=== PATIENT | female | born 1940 | race Two or more races ===

== ENCOUNTER 2017-09-20 08:00 | Inpatient (IN) | payer OTHER ==
[~2017-09-20] VITALS: Ht 149.9 cm; Wt 72.6 kg
[~2017-09-20 08:00] MED LIST: ASA325 M1 PO; ATACAND32 MG PO; CARDURA1 MG PO; CELEBREX100 MG PO; CRESTOR5 MG PO; ELAVIL; LODINE400 MG PO; MOTRIN800 MG PO; NEURONTIN300 MG PO; NOVOLIN N100 UNITS/; ORPH100T PO; SINGULAIR10 MG PO; SYNTHROID100 MCG; VERAPAMIL HCL180 MG PO; ZESTRIL20 MG; [UNRECOGNIZED DRUG - OTHER] PO
[2017-09-20] MEDS ORDERED: COZAAR100 MG PO (12:47)
[2017-09-20] MEDS ORDERED: ZANTAC150 MG PO (12:48)
[2017-09-20] MEDS ORDERED: AMLODIPINE BESYL5 MG PO (12:48)
[2017-09-20] MEDS ORDERED: ALBUTEROL0.63 MG/3 IH (12:49)
[2017-09-20] MEDS ORDERED: DOXAZOSIN MESYLA2 MG PO (12:49)
[2017-09-20] MEDS ORDERED: CALTRATE 600+D1 EAC1 PO (12:50)
[2017-09-22] MEDS ORDERED: ACETAMINOPHEN-1 EAC2 PO (15:18)
[2017-09-22] MEDS ORDERED: COLACE100 MG PO (15:18)
[2017-09-22] MEDS ORDERED: CIPROFLOXACIN750 MG PO (15:18)
[2017-09-22] MEDS ORDERED: CLONAZEPAM1 MG PO (15:18)
== END 2017-09-22 16:47 | disposition home or self-care (01) | DRG 454 ==
LOC: SURH 09-21 04:50 → O/R 09-21 04:50 → SURH 09-21 08:00
PROVIDERS: Orthopaedic Surgery Orthopaedic Surgery of the Spine
PROC: 0SG0071 Fusion of Lumbar Vertebral Joint with Autologous Tissue Substitute, Posterior Approach, Posterior Column, Open Approach (ICD-10-PCS; 2017-09-21)
PROC: 0ST20ZZ Resection of Lumbar Vertebral Disc, Open Approach (ICD-10-PCS; 2017-09-21)
PROC: 0SG00AJ Fusion of Lumbar Vertebral Joint with Interbody Fusion Device, Posterior Approach, Anterior Column, Open Approach (ICD-10-PCS; 2017-09-21)
PROC: 07DS3ZZ Extraction of Vertebral Bone Marrow, Percutaneous Approach (ICD-10-PCS; 2017-09-21)
PROC: 0SG00A0 Fusion of Lumbar Vertebral Joint with Interbody Fusion Device, Anterior Approach, Anterior Column, Open Approach (ICD-10-PCS; principal; 2017-09-21 13:00)
DX: M48.061 Spinal stenosis, lumbar region without neurogenic claudication (principal); M51.06 Intervertebral disc disorders with myelopathy, lumbar region; M43.16 Spondylolisthesis, lumbar region; E03.8 Other specified hypothyroidism; E11.9 Type 2 diabetes mellitus without complications; I10 Essential (primary) hypertension

== ENCOUNTER 2017-10-03 12:24 | Emergency (ER) | payer OTHER ==
[~2017-10-03] VITALS: Ht 154.9 cm; Wt 64.9 kg
[~2017-10-03 12:24] MED LIST changes: +ACETAMINOPHEN-1 EAC2 PO; +ALBUTEROL0.63 MG/3 IH; +AMLODIPINE BESYL5 MG PO; +CALTRATE 600+D1 EAC1 PO; +CIPROFLOXACIN750 MG PO; +CLONAZEPAM1 MG PO; +COLACE100 MG PO; +COZAAR100 MG PO; +DOXAZOSIN MESYLA2 MG PO; +ZANTAC150 MG PO
== END 2017-10-03 19:14 | disposition home or self-care (01) ==
LOC: ER 12:24
DX: K59.00 Constipation, unspecified (principal)

== ENCOUNTER → 2017-10-10 | Outpatient (CLI) | payer OTHER | END | disposition home or self-care (01) | LOC: WOUND MED 08:17 | DX: E10.622 Type 1 diabetes mellitus with other skin ulcer (principal); L98.422 Non-pressure chronic ulcer of back with fat layer exposed | CPT/HCPCS: 11042; A4554; A4930; A6216; A6220; G0463 ==

== ENCOUNTER → 2017-10-17 | Outpatient (CLI) | payer OTHER | END | disposition home or self-care (01) | LOC: WOUND MED 07:42 | DX: E10.622 Type 1 diabetes mellitus with other skin ulcer (principal); L98.422 Non-pressure chronic ulcer of back with fat layer exposed | CPT/HCPCS: 11042; A4554; A4930; A6216; A6220 ==

== ENCOUNTER → 2017-10-23 | Emergency (ER) | payer OTHER ==
[~2017-10-23] VITALS: Ht 121.9 cm; Wt 74.4 kg
== END | disposition home or self-care (01) ==
LOC: ER 07:02
DX: T81.31XS Disruption of external operation (surgical) wound, not elsewhere classified, sequela (principal); Y83.8 Other surgical procedures as the cause of abnormal reaction of the patient, or of later complication, without mention of misadventure at the time of the procedure

== ENCOUNTER → 2017-10-24 | Outpatient (CLI) | payer OTHER | END | disposition home or self-care (01) | LOC: WOUND MED 08:12 | DX: E10.622 Type 1 diabetes mellitus with other skin ulcer (principal); L98.422 Non-pressure chronic ulcer of back with fat layer exposed | CPT/HCPCS: 11042; A4554; A4930; A6216; A6219 ==

== ENCOUNTER → 2017-10-31 | Outpatient (CLI) | payer OTHER | END | disposition home or self-care (01) | LOC: WOUND MED 07:42 | DX: E10.622 Type 1 diabetes mellitus with other skin ulcer (principal); L98.422 Non-pressure chronic ulcer of back with fat layer exposed | CPT/HCPCS: 11042; A4554; A4930; A6216; A6219 ==

== ENCOUNTER → 2017-11-07 | Outpatient (CLI) | payer OTHER ==
[~2017-11-07] MED LIST changes: +AMLODIPINE BESYL5 MG
== END | disposition home or self-care (01) ==
LOC: WOUND MED 08:55 → EDSTATUS 13:30
DX: E10.622 Type 1 diabetes mellitus with other skin ulcer (principal); L98.422 Non-pressure chronic ulcer of back with fat layer exposed
CPT/HCPCS: 11042; A4554; A4930; A6196; A6216; A6219

== ENCOUNTER → 2017-11-14 | Outpatient (CLI) | payer OTHER | END | disposition home or self-care (01) | LOC: WOUND MED 08:32 | DX: E10.622 Type 1 diabetes mellitus with other skin ulcer (principal); L98.422 Non-pressure chronic ulcer of back with fat layer exposed | CPT/HCPCS: 11042; A4554; A4930; A6216 ==

== ENCOUNTER → 2017-11-21 | Outpatient (CLI) | payer OTHER | END | disposition home or self-care (01) | LOC: WOUND MED 07:26 | DX: E10.622 Type 1 diabetes mellitus with other skin ulcer (principal); L98.422 Non-pressure chronic ulcer of back with fat layer exposed | CPT/HCPCS: 11042; A4554; A4930; A6212; A6216; A6219 ==

== ENCOUNTER 2017-11-24 09:51 | Outpatient (CLI) | payer OTHER | END 2017-11-24 15:00 | disposition home or self-care (01) | LOC: TOM 09:51 | DX: R55 Syncope and collapse (principal) ==

== ENCOUNTER → 2017-11-28 | Outpatient (CLI) | payer OTHER | END | disposition home or self-care (01) | LOC: WOUND MED 07:21 | DX: E10.622 Type 1 diabetes mellitus with other skin ulcer (principal); L98.422 Non-pressure chronic ulcer of back with fat layer exposed | CPT/HCPCS: 11042; A4554; A4930; A6212; A6216; A6219 ==

== ENCOUNTER → 2017-12-05 | Outpatient (CLI) | payer OTHER | END | disposition home or self-care (01) | LOC: WOUND MED 07:37 | DX: E10.622 Type 1 diabetes mellitus with other skin ulcer (principal); L98.422 Non-pressure chronic ulcer of back with fat layer exposed | CPT/HCPCS: G0463; A4554; A4930; A6216 ==

== ENCOUNTER 2018-02-09 15:11 | Outpatient (CLI) | payer OTHER | END 2018-02-09 16:06 | disposition home or self-care (01) | LOC: RAD 501 15:11 | DX: M25.571 Pain in right ankle and joints of right foot (principal); M25.572 Pain in left ankle and joints of left foot ==

== ENCOUNTER 2018-03-02 07:16 | Outpatient (CLI) | payer OTHER | END 2018-03-02 07:20 | disposition home or self-care (01) | LOC: RX STUDY 07:16 | DX: R10.84 Generalized abdominal pain (principal) ==

== ENCOUNTER → 2018-04-05 | Outpatient (CLI) | payer OTHER | END | disposition home or self-care (01) | LOC: NUCLEAR 10:00 | DX: M85.89 Other specified disorders of bone density and structure, multiple sites (principal); M81.0 Age-related osteoporosis without current pathological fracture ==

== ENCOUNTER 2018-06-07 15:17 | Outpatient (CLI) | payer OTHER | END 2018-06-07 15:25 | disposition home or self-care (01) | LOC: RAD 501 15:17 | DX: Z76.89 Persons encountering health services in other specified circumstances (principal) ==

== ENCOUNTER 2018-07-20 07:13 | Outpatient (CLI) | payer OTHER | END 2018-07-20 07:23 | disposition home or self-care (01) | LOC: LAB 07:13 | DX: I49.8 Other specified cardiac arrhythmias (principal); D64.89 Other specified anemias; E88.89 Other specified metabolic disorders; D68.8 Other specified coagulation defects; N39.0 Urinary tract infection, site not specified; A49.02 Methicillin resistant Staphylococcus aureus infection, unspecified site; E83.42 Hypomagnesemia; E11.9 Type 2 diabetes mellitus without complications; R82.79 Other abnormal findings on microbiological examination of urine ==

== ENCOUNTER 2018-07-31 04:57 | Day surgery (SDC) | payer OTHER | END 2018-07-31 13:35 | disposition home or self-care (01) | LOC: CIR.AMB 04:57 | DX: S93.05XA Dislocation of left ankle joint, initial encounter (principal); M76.72 Peroneal tendinitis, left leg; M66.362 Spontaneous rupture of flexor tendons, left lower leg ==

== ENCOUNTER 2019-02-22 08:42 | Outpatient (CLI) | payer OTHER | END 2019-02-22 08:59 | disposition home or self-care (01) | LOC: RAD 501 08:42 | DX: M25.572 Pain in left ankle and joints of left foot (principal) ==

== ENCOUNTER 2019-02-26 09:36 | Outpatient (CLI) | payer OTHER | END 2019-02-26 09:57 | disposition home or self-care (01) | LOC: RAD 501 09:36 | DX: M25.561 Pain in right knee (principal) ==

== ENCOUNTER 2020-06-04 12:51 | Outpatient (CLI) | payer OTHER | END 2020-06-04 13:24 | disposition home or self-care (01) | LOC: NUCLEAR 12:51 | PROVIDERS: ATTEND Orthopaedic Surgery | DX: M81.0 Age-related osteoporosis without current pathological fracture (principal) ==

== ENCOUNTER → 2020-07-23 06:15 | Outpatient (CLI) | payer OTHER | END | disposition home or self-care (01) | LOC: LAB 06:15 | PROVIDERS: ATTEND Orthopaedic Surgery | DX: E56.1 Deficiency of vitamin K (principal); M85.88 Other specified disorders of bone density and structure, other site; E55.9 Vitamin D deficiency, unspecified; E88.89 Other specified metabolic disorders; M79.671 Pain in right foot ==

== ENCOUNTER 2020-07-30 08:01 | Outpatient (CLI) | payer OTHER | END 2020-07-30 16:20 | disposition home or self-care (01) | LOC: RAD 08:01 | PROVIDERS: ATTEND Orthopaedic Surgery | DX: M19.071 Primary osteoarthritis, right ankle and foot (principal); M20.21 Hallux rigidus, right foot; M79.671 Pain in right foot ==

== ENCOUNTER 2022-02-04 17:54 | Emergency (ER) | payer OTHER ==
[~2022-02-04] VITALS: Ht 149.9 cm; Wt 76.2 kg
[2022-02-04] MEDS ORDERED: TRAZODONE HCL150 MG (18:05)
[2022-02-04] MEDS ORDERED: NAMENDA1 EACH (18:05)
[2022-02-04] MEDS ORDERED: SERTRALINE20 MG/1 ML (18:05)
[2022-02-04] MEDS ORDERED: ZESTRIL2.5 MG (18:10)
== END 2022-02-04 20:46 | disposition home or self-care (01) ==
LOC: ER 17:54
DX: S30.0XXA Contusion of lower back and pelvis, initial encounter (principal); S70.02XA Contusion of left hip, initial encounter; S70.01XA Contusion of right hip, initial encounter; W18.39XA Other fall on same level, initial encounter; Y93.9 Activity, unspecified; Y92.012 Bathroom of single-family (private) house as the place of occurrence of the external cause; Y99.9 Unspecified external cause status; E11.9 Type 2 diabetes mellitus without complications; I10 Essential (primary) hypertension; E03.9 Hypothyroidism, unspecified; M19.90 Unspecified osteoarthritis, unspecified site; Z79.4 Long term (current) use of insulin; Z88.8 Allergy status to other drugs, medicaments and biological substances; Z88.0 Allergy status to penicillin

== ENCOUNTER 2022-04-19 10:03 | Emergency (ER) | payer OTHER ==
[~2022-04-19] VITALS: Ht 152.4 cm; Wt 67.6 kg
[~2022-04-19 10:03] MED LIST changes: +NAMENDA1 EACH; +SERTRALINE20 MG/1 ML; +TRAZODONE HCL150 MG; +ZESTRIL2.5 MG
[2022-04-19] MEDS ORDERED: LANTUS SOL100 UNIT/1 SQ (10:52)
[2022-04-19] MEDS ORDERED: RISPERDAL25 MG/2 M1 (10:52)
== END 2022-04-19 14:57 | disposition home or self-care (01) ==
LOC: ER 10:03
DX: E11.9 Type 2 diabetes mellitus without complications (principal); Z79.4 Long term (current) use of insulin; E03.9 Hypothyroidism, unspecified; I10 Essential (primary) hypertension; Z95.5 Presence of coronary angioplasty implant and graft; Z88.0 Allergy status to penicillin; Z88.8 Allergy status to other drugs, medicaments and biological substances

== ENCOUNTER 2024-12-15 20:33 | Inpatient (IN) | payer OTHER ==
[~2024-12-15] VITALS: Ht 162.6 cm; Wt 77.1 kg
[~2024-12-15 20:33] MED LIST changes: +LANTUS SOL100 UNIT/1 SQ; +RISPERDAL25 MG/2 M1
--- NOTE | 2024-12-15 21:02 | NUR ---
SE RECIBE PTE ALERTA, ORIENTADA EN PERSONA EN AMBULANCIA ACOMPA[place] DE FAMILIARES QUIENES REFIEREN QUE LA TRAEN POR ULCERA SACRAL CON BACTERIA. REFIEREN QUE PTE ESTABA EN ANTIBIOTICOS POR BOCA EN LEWIS CAMA DAJA CONTINUA CON LA BACTERIA Y LEWIS INTERNISTA ORDENO TRAERLA PARA ER. SE MIDE SV Y SE UBICA
[2024-12-15] MEDS ORDERED: CEFTRIAXONE SODIUM 1,000 MG VIAL IV ONE (21:15)
[2024-12-15] MEDS ORDERED: FAMOtidine 10 MG/ML (4ML VIAL) IV ONE (21:15)
[2024-12-15] MEDS ORDERED: FAMOTIDINE/PF 20 MG/2 ML VIAL ONE (21:51)
--- NOTE | 2024-12-15 23:09 | NUR ---
SE ORIENTA A FAMILIAR SOBRE [place] MEDICO, REFIERE ENTENDER. SE REALIZAN MUESTRAS DE LABORATORIO BAJO MEDIDAS ASEPTICAS. SE ADMINISTRA MEDICAMENTO MELISSA ORDEN MEDICA. SE COORDINA ANTONINO X.
[2024-12-15 23:31] LABS: ALBUMIN 3.7 gm/dL (3.4-5.0); BILIRUBIN TOTAL 0.6 mg/dL (0.3-1.2); BILIRUBIN,CONJUGATED 0.14 mg/dL (0.0-0.2); BILIRUBIN,UNCONJUGATED 0.46 mg/dL (0.0-0.6); CALCIUM 10.7 mg/dL (8.5-10.1); CREATININE SERUM 0.87 mg/dL (0.55-1.02); GFR 62.03; GLOBULINA 4.1 G/DL (2.4-3.5); POTASSIUM 4.44 mEq/L (3.5-5.1); TOTAL PROTEIN 7.8 gm/dL (6.4-8.2)
[2024-12-15 23:42] LABS: C-REACTIVE PROTEIN 0.47 MG/DL (0.00-0.29); HEMOGLOBIN 14.3 g/dL (12.0-15.00); MEAN CELL VOLUME 89.1 fL (80.00-100.00); MEAN CORPUSCULAR HEMOGLOBIN 30.3 pg (27.00-32.0); PLATELET COUNT 307 K/uL (150-450); RED BLOOD COUNT 4.71 M/uL (4.00-6.00); RED CELL DISTRIBUTION WIDTH 13.7 % (11.5-14.5)
[2024-12-15 23:46] LABS: ERYTHROCYTE SEDIMENTATION RATE 53 mm/hr
[2024-12-16] MEDS ORDERED: CEFTRIAXONE SODIUM 1,000 MG VIAL IV ONE (00:15)
[2024-12-16] MEDS ORDERED: CEFTRIAXONE SODIUM 1,000 MG VIAL ONE (00:34)
[2024-12-16 01:30] LABS: PH,URINE 6.5 (5.0-8.0); URINE APPEARANCE Cloudy; URINE BILIRRUBIN Negative (NEGATIVE); URINE BLOOD NHT; URINE CAST 1.47 uL (0.0-1.40); URINE COLOR Yellow; URINE GLUCOSE Negative (NEGATIVE); URINE KETONE Negative (NEGATIVE); URINE LEUKOCYTE Large; URINE NITRATE Positive; URINE PROTEIN Negative (NEGATIVE); URINE RBC 3.8 uL (0.0-20.8); URINE UROBILINOGEN 0.2 E.U./dl; URINE WBC 1258.8 uL (0.0-23.2)
[2024-12-16 01:31] LABS: URINE BACTERIA > 9821.5 uL (0.0-1933)
[2024-12-16] MEDS ORDERED: DEXTROSE 50 % IN WATER 0.5 G/ML DISP.SYRIN IV PRN (05:15)
[2024-12-16] MEDS ORDERED: INSULIN LISPRO 1,000 UNIT/10 ML UNITS SUBCUTANEO PRN (05:15)
[2024-12-16] MEDS ORDERED: LEVOTHYROXINE SODIUM 100 MCG TABLET PO SCH (06:00)
--- NOTE | 2024-12-16 14:27 | NUR ---
SE LE SHARON MUESTRAS DE JENNA MELISSA ORDEN MEDICA .
[2024-12-16 14:34] LABS: HEMATOCRIT 39.2 % (36.0-45.00); HEMOGLOBIN 13.4 g/dL (12.0-15.00); MEAN CELL VOLUME 88.3 fL (80.00-100.00); MEAN CORPUSCULAR HEMOGLOBIN 30.1 pg (27.00-32.0); MEAN CORPUSCULAR HGB CONC 34.1 g/dl (32.0-36.0); PLATELET COUNT 265 K/uL (150-450); RED BLOOD COUNT 4.44 M/uL (4.00-6.00); RED CELL DISTRIBUTION WIDTH 13.7 % (11.5-14.5)
[2024-12-16] MEDS ORDERED: MINERAL OIL 30 ML BLIST.PACK PO SCH (14:53)
[2024-12-16] MEDS ORDERED: DOCUSATE SODIUM 100MG CAP PO SCH (14:55)
[2024-12-16] MEDS ORDERED: NA PHOS,M-B/NA PHOS,DI-BA 1 BOTTLE ENEMA RECTAL NR (15:00)
[2024-12-16] MEDS ORDERED: MAGNESIUM HYDROXIDE 400 MG/5 ML ML PO ONE (15:00)
[2024-12-16] MEDS ORDERED: LACTULOSE 20 G/30 ML BLIST.PACK PO ONE (15:00)
[2024-12-16 15:06] LABS: ALBUMIN 3.5 gm/dL (3.4-5.0); BILIRUBIN TOTAL 0.49 mg/dL (0.3-1.2); CALCIUM 10.1 mg/dL (8.5-10.1); CHOL HDL RATIO 2.4 (0-5.0); CREATININE SERUM 0.79 mg/dL (0.55-1.02); GFR 69.33; PHOSPHOROUS 2.5 mg/dL (2.5-4.9); POTASSIUM 3.79 mEq/L (3.5-5.1); TOTAL PROTEIN 7.5 gm/dL (6.4-8.2); TSH 0.846 uIU/mL (0.358-3.74)
[2024-12-16 15:07] LABS: C-REACTIVE PROTEIN 1.04 MG/DL (0.00-0.29)
[2024-12-16] MEDS ORDERED: FAMOTIDINE/PF 20 MG/2 ML VIAL IV SCH (15:14)
[2024-12-16] MEDS ORDERED: RINGERS SOLUTION,LACTATED 1,000 ML IV SCH (15:15)
[2024-12-16] MEDS ORDERED: SERTRALINE HCL 25 MG TABLET PO SCH (17:00)
[2024-12-16] MEDS ORDERED: MEMANTINE HCL 10 MG TABLET PO SCH (17:00)
[2024-12-16 17:21] VITALS: BP 154/60; O2SAT 95
[2024-12-16] MEDS ORDERED: AMLODIPINE BESYLATE 5 MG TABLET PO SCH (20:31)
[2024-12-16 22:33] VITALS: BP 135/71
[2024-12-17 01:36] VITALS: BP 160/78; O2SAT 96
[2024-12-17 08:40] VITALS: BP 169/65
[2024-12-17] MEDS ORDERED: CEFTRIAXONE SODIUM 2,000 MG in DEXTROSE 5 % IN WATER 100 ML IV SCH (09:00)
[2024-12-17] MEDS ORDERED: LISINOPRIL 40 MG TABLET PO SCH (09:00)
[2024-12-17] MEDS ORDERED: ENOXAPARIN SODIUM 40 MG/0.4 ML SYRINGE SUBCUTANEO SCH (09:00)
[2024-12-17] MEDS ORDERED: AMLODIPINE BESYLATE 5 MG TABLET PO SCH (17:00)
[2024-12-17 18:02] VITALS: BP 159/69
[2024-12-18 00:53] VITALS: BP 146/60
[2024-12-18 08:52] VITALS: BP 148/56
[2024-12-18 16:00] VITALS: BP 158/70
[2024-12-18] MEDS ORDERED: FAMOtidine 20 MG TABLET PO SCH (17:00)
[2024-12-19 00:45] VITALS: BP 121/57
[2024-12-19 08:56] VITALS: BP 107/55
[2024-12-19] MEDS ORDERED: AMOX-CLAV 875-1 EAC1 PO (12:10)
[2024-12-19] MEDS ORDERED: INTESTINEX680 M1 PO (12:10)
[2024-12-19] MEDS ORDERED: LISINOPRIL40 MG PO (12:11)
[2024-12-19] MEDS ORDERED: AMLODIPINE BESYL5 MG PO (12:11)
[2024-12-19] MEDS ORDERED: SERTRALINE HCL25 MG PO (12:11)
[2024-12-19] MEDS ORDERED: COLACE100 MG PO (12:11)
[2024-12-19] MEDS ORDERED: SYNTHROID100 MCG PO (12:12)
== END 2024-12-19 14:35 | disposition home or self-care (01) | DRG 690 ==
LOC: ER 20:33 → MEDI 12-16 17:54 → SEC-K 12-16 17:54 → MEDJ 12-16 17:57 → MEDI 12-16 18:44
PROVIDERS: General Practice; Internal Medicine; ADMIT Internal Medicine; ATTEND Internal Medicine
PROC: BW21ZZZ Computerized Tomography (CT Scan) of Abdomen and Pelvis (ICD-10-PCS; principal; 2024-12-16)
PROC: BW40ZZZ Ultrasonography of Abdomen (ICD-10-PCS; 2024-12-16)
DX: N39.0 Urinary tract infection, site not specified (principal); L89.202 Pressure ulcer of unspecified hip, stage 2; L08.9 Local infection of the skin and subcutaneous tissue, unspecified; B96.4 Proteus (mirabilis) (morganii) as the cause of diseases classified elsewhere; B96.1 Klebsiella pneumoniae [K. pneumoniae] as the cause of diseases classified elsewhere; E11.9 Type 2 diabetes mellitus without complications; Z79.4 Long term (current) use of insulin; E03.9 Hypothyroidism, unspecified; E78.5 Hyperlipidemia, unspecified; I25.10 Atherosclerotic heart disease of native coronary artery without angina pectoris; I11.9 Hypertensive heart disease without heart failure; G30.9 Alzheimer's disease, unspecified; F02.80 Dementia in other diseases classified elsewhere, unspecified severity, without behavioral disturbance, psychotic disturbance, mood disturbance, and anxiety; Z95.5 Presence of coronary angioplasty implant and graft